=== PATIENT | male | born 1995 | race Caucasian/White ===

== ENCOUNTER → 2016-08-12 | Outpatient (CLI) | payer SELFPAY ==
--- NOTE | 2016-08-13 09:24 | US ---
Testicular sonogram CLINICAL HISTORY: Testicular pain. Epididymitis. FINDINGS: Both testicles are normal in size and echotexture. Normal color flow Doppler evaluation of the ovaries Normal size and appearance of the bilateral epididymis. Normal vascularity. Small amount of fluid in the scrotum bilaterally. No large hydrocele. No varicocele No scrotal abnormality IMPRESSION: Small amount of fluid bilaterally No sonographic evidence of epididymoorchitis Electronically signed by: Griffin Cornelius MD 08/13/2016 9:23 AM CDT
== END | disposition home or self-care (01) ==
LOC: US 17:04
PROVIDERS: ATTEND Family Medicine
DX: N45.1 Epididymitis (principal); N45.2 Orchitis

== ENCOUNTER 2017-12-07 13:06 | Emergency (ER) | payer BC, SELFPAY ==
--- NOTE | 2017-12-07 13:37 | ED.PDOC ---
History of Present Illness - General Chief Complaint: GI Problem Stated Complaint: nausea Time Seen by Provider: 12/07/17 13:29 Information Source: patient Exam Limitations: no limitations - History of Present Illness Initial Comments: Guy Bates 22 y/o male stated had nausea/vomiting since last night no diarrhea,fever or chills. No heavy alcohol use recently.Unable to keep anything down.No chronic medical problem. Abdominal Pain Onset Location: epigastric - mild Pain Radiation: no radiation Quality: mild, burning, intermittent Timing/Duration: 7-24 hours Improving Factors: nothing Worsening Factors: nothing Associated Symptoms: denies symptoms, other - see hpi Past Medical History (General) - Patient Medical History Hx Stroke: No Hx Cardiac Disorders: No Hx Diabetes: No Surgical History: no surgical history - Social History Hx Tobacco Use: No Hx Alcohol Use: Yes - socially Hx Substance Use: No Hx Physical Abuse: No Hx Emotional Abuse: No Family Medical History - Family History Mother Family History: No Known Physical Exam - Physical Exam General Appearance: Alert, Comfortable, No apparent distress Eyes, Ears, Nose, Throat Exam: PERRL/EOMI, normal ENT inspection, pharynx normal Neck: non-tender, supple Respiratory: chest non-tender, lungs clear, normal breath sounds, no respiratory distress Cardiovascular/Chest: normal peripheral pulses, regular rate, rhythm, no murmur Peripheral Pulses: No deficit Gastrointestinal/Abdominal: normal bowel sounds, non tender, soft, no organomegaly Back Exam: normal inspection, no CVA tenderness, no vertebral tenderness Extremity: non-tender, no pedal edema, no calf tenderness Neurologic: alert, oriented x 3 Skin Exam: normal color, warm/dry, rash - NONE Lymphatic: no adenopathy Progress - Progress Progress: 12/07/17 13:41 Vital Signs - 8 hr 12/07/17 13:18 Temperature 98.7 F Pulse Rate [ 84 left brachial] Respiratory 20 Rate Blood Pressure 113/71 [left brachial] O2 Sat by Pulse 100 Oximetry - Results/Orders Results/Orders: Laboratory Tests 12/07/17 12/07/17 13:55 13:57 WBC 8.6 RBC 5.92 Hgb 18.9 H Hct 54.0 H MCV 91.1 MCH 31.9 H MCHC 34.9 RDW 13.4 Plt Count 279 MPV 7.9 Absolute Neuts (auto) 6.30 Absolute Lymphs (auto) 1.70 Absolute Monos (auto) 0.60 Absolute Eos (auto) 0.00 Absolute Basos (auto) 0.00 Neutrophils % 73.3 Lymphocytes % 19.6 L Monocytes % 6.4 Eosinophils % 0.3 L Basophils % 0.4 PT 10.3 INR 1.03 PTT (SP) 25.4 Sodium 139 Potassium 3.9 Chloride 103 Carbon Dioxide 23 Anion Gap 16.9 BUN 17 Creatinine 0.84 BUN/Creatinine Ratio 20.2 H Random Glucose 102 Serum Osmolality 279.3 Calcium 10.2 Magnesium 2.2 Total Bilirubin 1.4 H Direct Bilirubin 0.3 H Indirect Bilirubin 1.1 H AST 23 ALT 34 Alkaline Phosphatase 58 Creatine Kinase 83 CK-MB (CK-2) 1.3 CK-MB (CK-2) % Not Reportable Troponin I < 0.02 Serum Total Protein 8.6 H Albumin 5.6 H Lipase 27 Monoscreen Negative - EKG/XRAY/CT XRAY: chest - no acute findings including abdomen Departure - Departure Clinical Impression: Nausea & vomiting Qualifiers: Vomiting type: unspecified Vomiting Intractability: non-intractable Qualified Code(s): R11.2 - Nausea with vomiting, unspecified Time of Disposition: 14:35 Disposition: Discharge to Home or Self Care Condition: Fair Departure Forms: ED Discharge - Pt. Copy, Patient Portal Self Enrollment Instructions: DI for Gastroesophageal Reflux Disease (GERD), Nausea and Vomiting, Adult (DC) Diet: other - AVOID GREASY/SPICY FOODS Referrals: Griffin Penny MD [Primary Care Provider] - 1-2 Weeks Prescriptions: Ondansetron [Zofran Odt] 4 mg PO TID PRN #10 tab PRN Reason: Nausea/Vomiting Home Medications: Ambulatory Orders Ondansetron [Zofran Odt] 4 mg PO TID PRN #10 tab 12/07/17 Additional Instructions: May take (OTC) Prilosec one capsule am/pm;Follow up with primary Md 08 December 2017 as needed
[2017-12-07] MEDS ORDERED: ONDANSETRON INJ 4 MG/2 ML VIAL IV ONE (13:40)
[2017-12-07] MEDS ORDERED: PANTOPRAZOLE SODIUM IV 40 MG VIAL IV ONE (13:40)
[2017-12-07] MEDS ORDERED: LACTATED RINGERS 1,000 ML IVS ONE (13:40)
--- NOTE | 2017-12-07 14:18 | RAD ---
PROCEDURE: XR CHEST 1 VIEW HISTORY: N/V/pain COMPARISON: None TECHNIQUE: Single projection of the chest was done. FINDINGS: The lung zelaya are well inflated . There are no discrete airspace infiltrates, pneumothoraces or pleural effusions. The pulmonary vascularity is normal. The cardiomediastinal silhouette is unremarkable for patient's age and sex. IMPRESSION: There is no acute pleural-parenchymal process seen in the imaged lung zelaya. Location of Interpretation: [facility]eler[facility]iology Electronically signed by: Nicolás Flores MD 12/07/2017 2:17 PM CDT Workstation: [id number]
--- NOTE | 2017-12-07 14:19 | RAD ---
PROCEDURE: Abdomen Flat Upright Clinical History: N/V/pain Indication: Same as above Comparison: None Technique: Two views of the abdomen and pelvis were done. Findings: There is no gross evidence of free air in the abdomen or the pelvis . The small and large bowel gas pattern does not show any evidence of obstruction, ileus or bowel wall thickening. There is no visualization of radiopaque calculi in the outline of the urinary tract. The visualized lung bases are unremarkable . There is no significant constipation. Impression: There are no acute findings in the abdomen or the pelvis Location of Interpretation: [id number] Electronically signed by: Nicolás Flores MD 12/07/2017 2:17 PM CDT Workstation: [id number]
[2017-12-08 17:47] VITALS: BP 124/77; TEMP 98.7; O2SAT 100
== END 2017-12-07 15:00 | disposition home or self-care (01) ==
LOC: ER 13:06
DX: R11.2 Nausea with vomiting, unspecified (principal); R10.13 Epigastric pain
CPT/HCPCS: 36415; 71045; 74019; 80048; 80076; 82550; 82553; 83690; 84484; 85025; 85610; 85730; 86403; J2405; J7120